=== PATIENT | male | born 1950 | race Caucasian/White ===

== ENCOUNTER 2024-04-16 19:22 | Emergency (ER) | payer MEDICARE, SELFPAY ==
[2024-04-16 19:31] VITALS: BP 220/120; PULSE 90; TEMP 36.6; O2SAT 94; BMI 40.2
--- NOTE | 2024-04-16 19:44 | ED_ITS ---
HPI HPI - Back Pain/Injury General Chief Complaint: Back Pain/Injury Stated Complaint: BACK PAIN Time Seen by Provider: 04/16/24 19:41 Source: patient Mode of arrival: walk-in Limitations: no limitations History of Present Illness HPI Narrative: presents complaining of lower back pain for past week. States past episodes of back pain including sciatica pain that he can usually treat himself or wait it out until it resolves Related Data Allergies Allergy/AdvReac Type Severity Reaction Status Date / Time No Known Drug Allergies Allergy Verified 04/16/24 19:35 Opioid HPI Opioid Management Most Recent Opioid Data: 2 Last Pain Scale 10 04/16/24 19:38 Review of Systems 2 ROS0 Status of ROS 10 or more systems reviewed and unremark able except as noted in history and below Exam Constitutional Vital Signs, click to edit/add: Last Vital Signs Temp 97.9 F 04/16/24 19:31 Pulse 90 04/16/24 19:31 Resp 18 04/16/24 19:31 BP 178/108 H 04/16/24 21:20 Pulse Ox 94 L 04/16/24 19:31 O2 Del Method Room Air 04/16/24 19:31 Common normals: no apparent distress, oriented x3, no limitations, healthy appearing, alert and well nourished [facility] Common normals: normocephalic and head/scalp atraumatic Eye Common normals: EOMs intact bilaterally and conjunctivae normal Respiratory Common normals: normal respiratory effort, no retractions, no use of accessory muscles and clear to auscultation bilaterally Cardio Common normals: regular rate, regular rhythm, S1 normal heart sound and S2 normal heart sound GI Common normals: Normal to inspection, nondistended, normoactive bowel sounds present, soft to palpation and non-tender Back & Pelvis Back image (male): 2 1. tender Extremity Common normals: normal to inspection and full ROM Neuro Common normals: oriented x3, CN's II-XII intact bilaterally, moves all extremities and no focal motor deficits Psych Appearance: grossly normal Course Vital Signs Vital signs: Vital Signs Temperature 97.9 F 04/16/24 19:31 Pulse Rate 90 04/16/24 19:31 Respiratory Rate 18 04/16/24 19:31 Blood Pressure 220/120 H 04/16/24 19:31 Pulse Oximetry 94 L 04/16/24 19:31 Oxygen Delivery Method Room Air 04/16/24 19:31 Temperature 97.9 F 04/16/24 19:31 Pulse Rate 90 04/16/24 19:31 Respiratory Rate 18 04/16/24 19:31 Blood Pressure 178/108 H 04/16/24 21:20 Pulse Oximetry 94 L 04/16/24 19:31 Oxygen Delivery Method Room Air 04/16/24 19:31 MDM - Back Pain/Injury MDM Narrative Medical decision making narrative: presents complaining of back pain for past week. No radicular symptoms. No lower extremity weakness. labs unremarkable including CBC and CRP. Patient medicated in the department and pain is now tolerable. Patient discharged home with a prescription for [place] and advised to follow up with his doctor next week Lab Data Labs: Lab Results 04/16/24 Range/Units 19:57 WBC 8.3 (4.0-11.0) 10^3/uL RBC 4.77 (4.70-6.10) 10^6/uL Hgb 14.7 (14.0-18.0) g/dL Hct 43.2 (42.0-54.0) % MCV 90.6 (80.0-94.0) fL MCH 30.8 (25.9-34.0) pg MCHC 34.0 (29.9-35.2) g/dL RDW 13.6 (11.0-15.0) % Plt Count 227 (150-450) 10^3/uL MPV 9.1 L (9.5-13.5) fL Neut % (Auto) 67.9 (43.0-75.0) % Lymph % (Auto) 21.9 (20.5-60.0) % [place] % (Auto) 7.9 (1.7-12.0) % Eos % (Auto) 1.5 (0.9-7.0) % Baso % (Auto) 0.6 (0.2-2.0) % Neut # (Auto) 5.6 (1.4-6.5) 10^3/uL Lymph # (Auto) 1.8 (1.2-3.8) 10^3/uL [place] # (Auto) 0.7 (0.3-0.8) 10^3/uL Eos # (Auto) 0.1 (0.0-0.7) 10^3/uL Baso # (Auto) 0.1 (0.0-0.1) 10^3/uL Abs Immat Gran (auto) 0.02 (0.00-0.03) 10^3/uL Imm/Tot Granulo (auto) 0.2 (0.0-0.5) % ESR 53 H (<=20) mm/hr Sodium 138 (136-145) mmol/L Potassium 4.3 (3.5-5.1) mmol/L Chloride 104 (98-107) mmol/L Carbon Dioxide 22.2 (21.0-32.0) mmol/L Anion Gap 16.1 BUN 13.0 (7.0-18.0) mg/dL Creatinine 1.23 (0.70-1.30) mg/dL Est GFR ( Amer) >60 (>=60) Est GFR (Non-Af Amer) 58 L (>=60) BUN/Creatinine Ratio 10.6 Glucose 108 H (74-106) mg/dL Calcium 9.8 (8.5-10.1) mg/dL C-Reactive Protein <0.50 (<=0.50) mg/dL Discharge Plan Discharge Stand Alone Forms: Portal Instructions Chief Complaint: Back Pain/Injury Clinical Impression: Strain of lumbar region Patient Disposition: Home, Self-Care Print Language: Malagasy Instructions: Low Back Strain (ED) Additional Instructions: follow up with your doctor next week for recheck Referrals: Physician,Non-Staff, MD [Primary Care Provider] - 1 week
[2024-04-16] MEDS: METHYLPREDNISOLONE SOD SUCC PF 125 MG/2 ML VIAL IVP (20:00)
[2024-04-16] MEDS: ORPHENADRINE 60 MG/ 2 ML VIAL IV (20:00)
[2024-04-16 20:01] VITALS: BP 187/116
[2024-04-16] MEDS: HYDRALAZINE HCL 20 MG/ML VIAL 5 MG IVP (20:01)
[2024-04-16 20:03] LABS: Basophils Absolute Auto 0.1 10^3/uL (0.0-0.1); Basophils Percent Auto 0.6 % (0.2-2.0); Eosinophils Absolute Auto 0.1 10^3/uL (0.0-0.7); Eosinophils Percent Auto 1.5 % (0.9-7.0); Hematocrit 43.2 % (42.0-54.0); Hemoglobin 14.7 g/dL (14.0-18.0); Immature Granulocytes Abs Auto 0.02 10^3/uL (0.00-0.03); Immature Granulocytes Pct Auto 0.2 % (0.0-0.5); Lymphocytes Absolute Auto 1.8 10^3/uL (1.2-3.8); Lymphocytes Percent Auto 21.9 % (20.5-60.0); Mean Corpuscular Hemoglobin 30.8 pg (25.9-34.0); Mean Corpuscular Volume 90.6 fL (80.0-94.0); Mean Platelet Volume 9.1 fL (9.5-13.5); Monocytes Absolute Auto 0.7 10^3/uL (0.3-0.8); Monocytes Percent Auto 7.9 % (1.7-12.0); Neutrophils Absolute Auto 5.6 10^3/uL (1.4-6.5); Neutrophils Percent Auto 67.9 % (43.0-75.0); Platelet Count 227 10^3/uL (150-450); Red Blood Count 4.77 10^6/uL (4.70-6.10); Red Cell Distribution Width 13.6 % (11.0-15.0); White Blood Count 8.3 10^3/uL (4.0-11.0)
[2024-04-16 20:15] LABS: Anion Gap 16.1; BUN Creatinine Ratio 10.6; C Reactive Protein <0.50 mg/dL (<=0.50); Calcium 9.8 mg/dL (8.5-10.1); Carbon Dioxide 22.2 mmol/L (21.0-32.0); Chloride 104 mmol/L (98-107); Estimated GFR (African America >60 (>=60); Estimated GFR (Non-African Ame 58 (>=60); Glucose 108 mg/dL (74-106); Potassium 4.3 mmol/L (3.5-5.1); Sodium 138 mmol/L (136-145)
[2024-04-16 20:26] VITALS: BP 182/108
[2024-04-16 21:12] LABS: Erythrocyte Sedimentation Rate 53 mm/hr (<=20)
[2024-04-16 21:20] VITALS: BP 178/108
[2024-04-16] MEDS: HYDROMORPHONE HCL 0.5 MG/0.5 ML SYRINGE IV (21:24)
[2024-04-16] MEDS: HYDROCODONE/ACET 5-325 MG TABLET 4 TAB PO (22:32)
[2024-04-16 22:34] VITALS: BP 161/110
== END 2024-04-16 22:37 | disposition home or self-care (01) ==
PROVIDERS: Emergency Provider Internal Medicine
DX: S39.012A Strain of muscle, fascia and tendon of lower back, initial encounter (principal); X58.XXXA Exposure to other specified factors, initial encounter
CPT/HCPCS: 36415; 80048; 85025; 85652; 86140; 96374; 96375; 99284; J0360; J1170; J2360; J2919